=== PATIENT | female | born 2000 | race Caucasian/White ===

== ENCOUNTER 2018-01-13 15:00 | Emergency (ER) | payer OTHER ==
[~2018-01-13] VITALS: Ht 162.6 cm; Wt 95.3 kg
[2018-01-13 16:12] LABS: ABSOLUTE NEUTROPHILS 6.2 thou/uL (1.4-8.2); BASOPHILS 0.6 % (0.0-2.0); EOSINOPHILS 1.2 % (0.0-3.0); HEMATOCRIT 38.6 % (37.0-47.0); HEMOGLOBIN 13.4 gm/dL (12.0-15.0); LYMPHOCYTES 26.8 % (24.0-44.0); MCH 30.7 pg (26.0-34.0); MCHC 34.7 g/dL (28.0-37.0); MCV 88.4 fL (80.0-100.0); MONOCYTES 6.2 % (1.0-8.0); PLATELET COUNT 373 thou/uL (150-400); POLYS 65.2 % (36.0-66.0); RBC 4.37 mil/uL (4.20-5.00); RDW 12.3 % (10.5-14.5); WBC 9.5 thou/uL (4.0-11.0)
[2018-01-13 16:20] LABS: CALCIUM 9.3 mg/dL (8.5-10.1); POTASSIUM 3.7 mmol/L (3.5-5.1)
[2018-01-13] MEDS ORDERED: CLEOCIN HCL150 MG PO (17:05)
[2018-01-13] MEDS ORDERED: NAPROXEN375 MG PO (17:05)
[2018-01-13 18:03] VITALS: BP 117/73
== END 2018-01-13 17:10 | disposition home or self-care (01) ==
LOC: ER 15:00
PROVIDERS: Emergency Medicine
DX: L03.115 Cellulitis of right lower limb (principal); T86.828 Other complications of skin graft (allograft) (autograft); J45.909 Unspecified asthma, uncomplicated